=== PATIENT | male | born 2000 | race Hispanic/Latino ===

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

== ENCOUNTER 2024-11-13 15:21 | Emergency (ER) | payer BC, MEDICAID ==
[~2024-11-13] VITALS: Ht 165.1 cm; Wt 61.2 kg
--- NOTE | 2024-11-13 15:55 | ERN ---
ED Note History of Present Illness Stated Complaint: BLEEDING WHILE URINATING,TROUBLE WALKING Chief Complaint: Skin Rash/Abscess Time Seen by MD: 15:24 Dictation: PATIENT IS A 23-YEAR-OLD MALE COMING IN TODAY WITH COMPLAINTS OF PAINFUL LESIONS TO HIS RECTUM HE HAS HAD FOR TWO WEEKS. HE IS HOMOSEXUAL AND STATES HIS LAST SEXUAL CONTACT RECTALLY WAS TWO WEEKS AGO. STATES HIS PARTNER DOES NOT HAVE ANY LESIONS AT THIS TIME. HE HAS HAD NO COMPLAINTS. Allergies: Coded Allergies: No Known Allergies (Unverified Allergy, Unknown, 01/29/19) Home Meds Active Scripts Imiquimod (Zyclara) 3.75 % Cream.pack, 1 APPL TP HS for 28 Days, #28 PACKET 0 Refills APPLY DIRECTED NIGHTLY TO RASH FOR TWO WEEKS, THEN STOP FOR TWO WEEKS, THEN COMPLETE TWO MORE WEEKS OF DOSING. Prov:YANIRA RUIZ VOCATIONAL EDUCATION PROFESSIONAL 11/13/24 Past Medical History Past Medical History: No Pertinent History Surgical History: Appendectomy RN Note Reviewed/Agreed w/PFSH: Yes Review of System Dictation CONSTITUTIONAL: NEGATIVE EXCEPT FOR HPI HEAD/FACE: NEGATIVE EXCEPT FOR HPI EENT: NEGATIVE EXCEPT FOR HPI RESPIRATORY: NEGATIVE EXCEPT FOR HPI GASTROINTESTINAL/ABDOMINAL: NEGATIVE EXCEPT FOR HPI GENITOURINARY: NEGATIVE EXCEPT FOR HPI PERIRECTAL RASH MUSCULOSKELETAL: NEGATIVE EXCEPT FOR HPI INTEGUMENTARY: NEGATIVE EXCEPT FOR HPI NEUROLOGICAL/PSYCH: NEGATIVE EXCEPT FOR HPI HEMATOLOGIC/LYMPHATIC: NEGATIVE EXCEPT FOR HPI ALL SYSTEMS NEGATIVE, EXCEPT NOTED ABOVE. 13 POINT REVIEW OF SYSTEMS ASSESSED AND ALL NEGATIVE EXCEPT FOR ABOVE. Initial Vital Sign VS Vital Signs Date Time Temp Pulse Resp B/P (MAP) Pulse Ox O2 Delivery O2 Flow Rate FiO2 11/13/24 15:33 98.2 106 20 120/87 99 Room Air 0 11/13/24 16:43 21 Physical Exam Dictation VITAL SIGNS REVIEWED YAQUELIN RN IN ROOM WITH THE EXAM GENERAL APPEARANCE: ALERT, ORIENTED X 3, NO ACUTE DISTRESS, WELL DEVELOPED, NOURISHED. HEAD AND FACE: NON-TRAUMATIC. EYES: PERRL, PINK CONJUNCTIVAS, EYELID NO TRAUMA, ANTERIOR CHAMBER WITH ARCUS SENILIS. EARS: PINNAS INTACT AND NO SIGNS OF TRAUMA OR ERYTHEMA EAR CANALS CLEAR AND NO DISCHARGE TM NO ERYTHEMA NOSE: NO DISCHARGE, NO BLEEDING. OROPHARYNX: MOUTH NORMAL, TONGUE PINK, PHARYNX CLEAR,NO ERYTHEMA, TONSILS NO EXUDATES, NO ABSCESSES NOTED, MUCOUS MEMBRANE MOIST NECK: SUPPLE, NON-TENDER, NO THYROMEGALY, NO MASSES, NO JVD, NO BRUITS BREAST:DEFERRED CHEST:NO TENDERNESS, NO CREPITUS, NO PARADOXICAL MOVEMENT, NO RETRACTIONS LUNGS:CLEAR, WELL-VENTILATED, SYMMETRIC, NO RALES, NO WHEEZING, NO RHONCHI, NO STRIDOR, GOOD BREATH SOUNDS BILATERALLY HEART: REGULAR RATE, REGULAR RHYTHM, NO MURMUR, NO GALLOPS VASCULAR: NO PERIPHERAL EDEMA, ABDOMEN: SOFT, POSITIVE BOWEL SOUNDS, NONDISTENDED, NO GUARDING, NONTENDER, NO REBOUND, NO MASSES NO HEPATOMEGALY, NO SPLENOMEGALY, NO SMILEY'S SIGN, NO HERNIAS. RECTAL: PATIENT HAS TWO CONDYLOMA LESIONS. GENITAL: DEFERRED NEUROLOGICAL: NORMAL SPEECH, MOTOR FUNCTION INTACT, SENSORY FUNCTION INTACT MUSCULOSKELETAL: NECK NONTENDER, FULL RANGE OF MOTION, BACK NONTENDER, FULL RANGE OF MOTION, EXTREMITIES: NONTENDER, FULL RANGE OF MOTION SKIN: COLOR PINK, DRY, NO TURGOR, NO RASH, NO LACERATIONS, NO ABRASIONS, NO CONTUSIONS. 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 Prov: YANIRA RUIZ VOCATIONAL EDUCATION PROFESSIONAL 11/13/24 Additional Instructions: FOLLOW-UP WITH PRIMARY CARE PROVIDER IN 1 TO 2 DAYS. TAKE MEDICATIONS DIRECTED HERE IN THE EMERGENCY ROOM. OKAY TO CONTINUE HOME MEDICATIONS UNLESS OTHERWISE DISCUSSED DURING YOUR VISIT IN THE EMERGENCY ROOM TODAY. RETURN TO YOUR NEAREST EMERGENCY ROOM IF SYMPTOMS WORSEN OR IF THERE IS NO IMPROVEMENT. CALL 911 IF YOU NEED IMMEDIATE ASSISTANCE. TAKE TYLENOL OR MOTRIN [id number] NEEDED AND IF NO CONTRAINDICATIONS ARE PRESENT. INCREASE ORAL HYDRATION. A WOUND CULTURE OR URINE CULTURE WAS ORDERED HERE IN THE EM ERGENCY ROOM DEPARTMENT PLEASE FOLLOW-UP WITH PRIMARY CARE PROVIDER AND ADVISE THEM TO GET REPEAT PORTS FROM OUR FACILITY. IF YOU HAD ANY MARANDA WRAP/SPLINTS THAT WERE APPLIED HERE, PLEASE DO NOT REMOVE THEM UNTIL YOU SEE YOUR PRIMARY CARE OR SPECIALTY. USE CREAM DIRECTED. NO SEX OF ANY KIND UNTIL CLEARED BY YOUR DOCTOR OR CALL [facility] FOR APPOINTMENT Referrals: SARAH LAW (PCP) Time of Disposition: 16:03 I have reviewed the case, and I agree with, Diagnosis and Plan YANIRA RUIZ NP Nov 13, 2024 15:55 NAS SUBRAMANIAN DO Nov 14, 2024 08:09
[2024-11-13] MEDS ORDERED: IMIQ1CRE TP (16:06)
[2024-11-13 16:43] VITALS: BP 116/61; PULSE 71; RESP 18; TEMP 97.7; O2SAT 98
== END 2024-11-13 16:45 | disposition home or self-care (01) ==
LOC: EDH 15:21
DX: A63.0 Anogenital (venereal) warts (principal); Z90.49 Acquired absence of other specified parts of digestive tract; Z79.899 Other long term (current) drug therapy
CPT/HCPCS: 99283

== ENCOUNTER 2025-05-25 14:16 | Emergency (ER) | payer BC ==
[~2025-05-25] VITALS: Ht 165.1 cm; Wt 59.0 kg
[~2025-05-25 14:16] MED LIST: IMIQ1CRE TP
[2025-05-25 14:17] VITALS: BP 131/77; PULSE 105; RESP 18
--- NOTE | 2025-05-25 14:22 | ERN ---
ED Note History of Present Illness Stated Complaint: OTHER Chief Complaint: Other Problems Time Seen by MD: 14:17 Dictation: IS A 24-YEAR-OLD MALE COMING IN TODAY WITH COMPLAINTS OF PAINFUL BUMPS UNDERNEATH HIS LEFT AXILLA HE HAS HAD FOR TWO WEEKS. NO FEVER NO CHILLS NO NA USEA VOMITING. HE WENT TO HIS PRIMARY CARE DOCTOR AT THE [facility] AND WAS TOLD IT WAS POSSIBLE CYST AND WAS GIVEN AN ANTIBIOTIC CREAM. HE STATES THEY COME AND GO EXAM IN TRIAGE DEMONSTRATES SUBCUTICULAR FOLLICULAR CYST. THERE WAS NO ERYTHEMA NO INDURATION NO SWELLING. Allergies: Coded Allergies: No Known Allergies (Unverified Allergy, Unknown, 01/29/19) Home Meds Active Scripts Imiquimod (Zyclara) 3.75 % Cream.pack, 1 APPL TP HS for 28 Days, #28 PACKET 0 Refills APPLY DIRECTED NIGHTLY TO RASH FOR TWO WEEKS, THEN STOP FOR TWO WEEKS, THEN COMPLETE TWO MORE WEEKS OF DOSING. Prov:YANIRA RUIZ WIRE COINER 11/13/24 Past Medical History Past Medical History: No Pertinent History Surgical History: Appendectomy RN Note Reviewed/Agreed w/PFSH: Yes Review of System Dictation CONSTITUTIONAL: NEGATIVE EXCEPT FOR HPI HEAD/FACE: NEGATIVE EXCEPT FOR HPI EENT: NEGATIVE EXCEPT FOR HPI RESPIRATORY: NEGATIVE EXCEPT FOR HPI GASTROINTESTINAL/ABDOMINAL: NEGATIVE EXCEPT FOR HPI GENITOURINARY: NEGATIVE EXCEPT FOR HPI MUSCULOSKELETAL: NEGATIVE EXCEPT FOR HPI INTEGUMENTARY: NEGATIVE EXCEPT FOR HPI LEFT AXILLARY LESIONS NEUROLOGICAL/PSYCH: NEGATIVE EXCEPT FOR HPI HEMATOLOGIC/LYMPHATIC: NEGATIVE EXCEPT FOR HPI ALL SYSTEMS NEGATIVE, EXCEPT NOTED ABOVE. 13 POINT REVIEW OF SYSTEMS ASSESSED AND ALL NEGATIVE EXCEPT FOR ABOVE. Initial Vital Sign VS Vital Signs Date Time Temp Pulse Resp B/P (MAP) Pulse Ox O2 Delivery O2 Flow Rate FiO2 05/25/25 14:17 105 18 131/77 98 Room Air 0 Physical Exam Dictation VITAL SIGNS REVIEWED GENERAL APPEARANCE: ALERT, ORIENTED X 3, NO ACUTE DISTRESS, WELL DEVELOPED, NOURISHED. NO PAIN HEAD AND FACE: NON-TRAUMATIC. EYES: PERRL, PINK CONJUNCTIVAS, EYELID NO TRAUMA, ANTERIOR CHAMBER WITH ARCUS SENILIS. EARS: PINNAS INTACT AND NO SIGNS OF TRAUMA OR ERYTHEMA EAR CANALS CLEAR AND NO DISCHARGE TM NO ERYTHEMA NOSE: NO DISCHARGE, NO BLEEDING. OROPHARYNX: MOUTH NORMAL, TONGUE PINK, PHARYNX CLEAR,NO ERYTHEMA, TONSILS NO EXUDATES, NO ABSCESSES NOTED, MUCOUS MEMBRANE MOIST NECK: SUPPLE, NON-TENDER, NO THYROMEGALY, NO MASSES, NO JVD, NO BRUITS BREAST:DEFERRED CHEST:NO TENDERNESS, NO CREPITUS, NO PARADOXICAL MOVEMENT, NO RETRACTIONS LUNGS:CLEAR, WELL-VENTILATED, SYMMETRIC, NO RALES, NO WHEEZING, NO RHONCHI, NO STRIDOR, GOOD BREATH SOUNDS BILATERALLY HEART: REGULAR RATE, REGULAR RHYTHM, NO MURMUR, NO GALLOPS VASCULAR: NO PERIPHERAL EDEMA, ABDOMEN: SOFT, POSITIVE BOWEL SOUNDS, NONDISTENDED, NO GUARDING, NONTENDER, NO REBOUND, NO MASSES NO HEPATOMEGALY, NO SPLENOMEGALY, NO SMILEY'S SIGN, NO HERNIAS. RECTAL: DEFERRED GENITAL: DEFERRED NEUROLOGICAL: NORMAL SPEECH, MOTOR FUNCTION INTACT, SENSORY FUNCTION INTACT MUSCULOSKELETAL: NECK NONTENDER, FULL RANGE OF MOTION, BACK NONTENDER, FULL RANGE OF MOTION, EXTREMITIES: NONTENDER, FULL RANGE OF MOTION SKIN: COLOR PINK, PATIENT HAS SEVERAL SUBCUTICULAR LESIONS/FOLLICLES TO HIS LEFT AXILLA. THERE WAS NO ERYTHEMA NO SWELLING NO INDURATION PATIENT DOES NOT SHAVE LYMPHATIC: DEFERRED Results (Laboratory/Radiology) Laboratory/Radiology Laboratory Tests Test 05/25/25 14:29 White Blood Count 6.8 K/uL (4.8-10.8) Red Blood Count 5.39 MIL/uL (4.50-6.20) Hemoglobin 16.4 g/dL (14.0-18.0) Hematocrit 48.6 % (42-54) Mean Corpuscular Volume 90.2 fL (79-99) Mean Corpuscular Hemoglobin 30.4 pg (27.0-33.0) Mean Corpuscular Hemoglobin Concent 33.7 g/dL (32.0-36.0) Red Cell Distribution Width 13.1 % (11.0-15.5) Platelet Count 285 K/uL (130-400) Mean Platelet Volume 8.3 fL (7.5-10.5) Immature Granulocyte % (Auto) 0.1 % (0-1) Neutrophils (%) (Auto) 76.3 % (40.0-77.0) Lymphocytes (%) (Auto) 15.4 % (21.0-51.0) L Monocytes (%) (Auto) 6.0 % (3.0-13.0) Eosinophils (%) (Auto) 1.6 % (0.0-8.0) Basophils (%) (Auto) 0.6 % (0.0-5.0) Neutrophils # (Auto) 5.2 K/uL (1.8-7.7) Lymphocytes # (Auto) 1.1 K/uL (1.0-4.8) Monocytes # (Auto) 0.4 K/uL (0.1-1.0) Eosinophils # (Auto) 0.11 K/uL (0.00-0.70) Basophils # (Auto) 0.04 K/uL (0.00-0.20) Absolute Immature Granulocyte (auto 0.01 K/uL (0-1) Nucleated Red Blood Cells 0.0 % (0.0-0.19) Sodium Level 138 mmol/L (136-145) Potassium Level 3.7 mmol/L (3.5-5.1) Chloride Level 101 mmol/L (101-111) Carbon Dioxide Level 32 mmol/L (21-32) Blood Urea Nitrogen 8 mg/dL (7-18) Creatinine 0.9 mg/dL (0.5-1.3) Glomerular Filtration Rate Calc 122 mL/min (>90) Random Glucose 111 mg/dL (70-105) H Total Calcium 8.7 mg/dL (8.5-10.1) Labs Reviewed?: Yes ED Course ED Course Orders Procedure Category Date Status Time Cbc With Differential LAB 05/25/25 Complete 14:20 Basic Metabolic Panel LAB 05/25/25 Complete 14:20 Vital Signs Date Time Temp Pulse Resp B/P (MAP) Pulse Ox O2 Delivery O2 Flow Rate FiO2 05/25/25 14:17 105 18 131/77 98 Room Air 0 1520/PATIENT WILL BE DISCHARGED HOME WITH FOLLICULITIS PRESCRIBED CLINDAMYCIN TOLD SEE HIS DOCTOR Medical Decision Making MDM MEDICAL DECISION-MAKING BASED ON BASIC LABS TO RULE OUT INFECTIOUS PROCESS THERE WAS NO ELEVATED WHITE COUNT PATIENT WILL BE DISCHARGED HOME WITH FOLLICULITIS DISCHARGED HOME WITH CLINDAMYCIN AND TOLD TO FOLLOW BACK UP WITH HIS DOCTOR DX & DISP Disposition: Discharge Departure Impression: Primary Impression: Folliculitis of left axilla Condition: Stable Scripts Ibuprofen (Ibuprofen) 600 Mg Tablet 600 MG PO Q6H PRN for PAIN, #30 TAB Prov: YANIRA RUIZ WIRE COINER 05/25/25 Clindamycin HCl (Clindamycin HCl) 300 Mg Capsule 1 CAP PO QID for 10 Days, #40 CAP 0 Refills Prov: YANIRA RUIZ 05/25/25 Additional Instructions: FOLLOW-UP WITH PRIMARY CARE PROVIDER IN 1 TO 2 DAYS. TAKE MEDICATIONS DIRECTED HERE IN THE EMERGENCY ROOM. OKAY TO CONTINUE HOME MEDICATIONS UNLESS OTHERWISE DISCUSSED DURING YOUR VISIT IN THE EMERGENCY ROOM TODAY. RETURN TO YOUR NEAREST EMERGENCY ROOM IF SYMPTOMS WORSEN OR IF THERE IS NO IMPROVEMENT. CALL 911 IF YOU NEED IMMEDIATE ASSISTANCE. TAKE TYLENOL OR MOTRIN [id number] NEEDED AND IF NO CONTRAINDICATIONS ARE PRESENT. INCREASE ORAL HYDRATION. A WOUND CULTURE OR URINE CULTURE WAS ORDERED HERE IN THE EMERGENCY ROOM DEPARTMENT PLEASE FOLLOW-UP WITH PRIMARY CARE PROVIDER AND ADVISE THEM TO GET REPEAT PORTS FROM OUR FACILITY. IF YOU HAD ANY MARANDA WRAP/SPLINTS THAT WERE APPLIED HERE, PLEASE DO NOT REMOVE THEM UNTIL YOU SEE YOUR PRIMARY CARE OR SPECIALTY. TAKE CLINDAMYCIN DIRECTED UNTIL GONE. FOLLOW BACK UP WITH YOUR DOCTOR AT THE [facility] FOR FURTHER EVALUATION AND TREATMENT. Referrals: ARTURO MONTES DE OCA MD (PCP) Time of Disposition: 15:21 I have reviewed the case, and I agree with, Diagnosis and Plan YANIRA RUIZ May 25, 2025 14:22
[2025-05-25 14:35] LABS: IMMATURE GRANULOCYTE ABSOLUTE 0.01 K/uL (0-1); NUCLEATED RED BLOOD CELLS 0.0 % (0.0-0.19); PLATELET COUNT (AUTO) 285 K/uL (130-400); RED BLOOD CELL COUNT(AUTO) 5.39 MIL/uL (4.50-6.20); RED CELL DISTRIBUTION WIDTH 13.1 % (11.0-15.5); WHITE BLOOD COUNT (AUTO) 6.8 K/uL (4.8-10.8)
[2025-05-25 14:40] LABS: CREATININE 0.9 mg/dL (0.5-1.3); GLOMERULAR FILTR. RATE CALC 122.0 mL/min (>90); GLUCOSE,RANDOM 111.0 mg/dL (70-105); SODIUM SERUM 138.0 mmol/L (136-145); UREA NITROGEN, BLOOD 8.0 mg/dL (7-18)
[2025-05-25] MEDS ORDERED: CLIN-141 PO (15:22)
[2025-05-25] MEDS ORDERED: IBUP-1492 PO (15:22)
== END 2025-05-25 16:18 | disposition home or self-care (01) ==
LOC: EDH 14:16
DX: L02.422 Furuncle of left axilla (principal); Z90.49 Acquired absence of other specified parts of digestive tract
CPT/HCPCS: 36415; 80048; 85025; 99283